=== PATIENT | female | born 1990 | race Caucasian/White ===

== ENCOUNTER → 2017-11-18 | Outpatient (CLI) | payer OTHER ==
[2017-11-18 12:08] LABS: BASO % 0.6 % (0.0-1.0); EOS # 0.1 10^3/uL (0.0-0.50); EOS % 1.9 % (0.0-3.0); HEMATOCRIT 42.3 % (36.0-47.0); HEMOGLOBIN 14.2 g/dl (12.0-15.5); IMMATURE GRANULOCYTE % 0.1 % (0-3.0); LYMPH # 2.3 10^3/uL (1.5-6.5); LYMPH % 33.9 % (24.0-44.0); MEAN CORPUSCULAR HEMOGLOBIN 30.6 pg (27.0-33.0); MEAN CORPUSCULAR HGB CONC 33.6 g/dl (32.0-36.5); MEAN CORPUSCULAR VOLUME 91.2 fl (80.0-96.0); MONO # 0.6 10^3/uL (0.0-0.8); MONO % 8.1 % (0.0-5.0); NEUTROPHILS # 3.8 10^3/uL (1.8-7.7); NEUTROPHILS % 55.4 % (36.0-66.0); PLATELET COUNT, AUTOMATED 312 10^3/uL (150-450); RED BLOOD COUNT 4.64 10^6/uL (4.00-5.40); WHITE BLOOD COUNT 6.8 10^3/uL (4.0-10.0)
[2017-11-18 12:37] LABS: ERYTHROCYTE SEDIMENTATION RATE 5 mm/hr (0-20)
[2017-11-19 14:25] LABS: ANTINUCLEAR ANTIBODIES DIRECT Negative (Negative); SJOGREN'S ANTI SS-A <0.2 AI (0.0-0.9); SJOGREN'S ANTI SS-B <0.2 AI (0.0-0.9)
== END ==
LOC: M WUC 09:19
DX: L71.8 Other rosacea (principal)

== ENCOUNTER → 2018-12-30 | Outpatient (REF) | payer OTHER | LOC: M LAB REF 16:22 | PROVIDERS: ATTEND Physician Assistant | DX: J02.9 Acute pharyngitis, unspecified (principal) ==

== ENCOUNTER → 2019-01-11 | Outpatient (REF) | payer OTHER | LOC: M SFHCWAGY 10:58 | PROVIDERS: ATTEND Nurse Practitioner Women's Health | DX: Z12.4 Encounter for screening for malignant neoplasm of cervix (principal) ==

== ENCOUNTER → 2020-01-14 | Outpatient (CLI) | payer OTHER ==
[2020-01-14 10:23] LABS: ESTRADIOL 137.7 PG/ML; PROGESTERONE 28.56 NG/ML
== END ==
LOC: M WUC 08:09
PROVIDERS: ATTEND Obstetrics & Gynecology Reproductive Endocrinology
DX: E28.9 Ovarian dysfunction, unspecified (principal)

== ENCOUNTER → 2020-01-21 | Outpatient (CLI) | payer OTHER ==
[2020-01-21 11:40] LABS: PROGESTERONE 21.13 NG/ML
== END ==
LOC: M WUC 08:01
PROVIDERS: ATTEND Obstetrics & Gynecology Reproductive Endocrinology
DX: Z32.00 Encounter for pregnancy test, result unknown (principal)

== ENCOUNTER → 2020-01-24 | Outpatient (CLI) | payer OTHER ==
[2020-01-24 11:35] LABS: THYROID STIMULATING HORMONE 0.526 uIU/ML (0.358-3.740)
[2020-01-24 11:44] LABS: PROGESTERONE 31.56 NG/ML
[2020-01-24 11:45] LABS: ESTRADIOL 195.5 PG/ML
== END ==
LOC: M WUC 08:10
PROVIDERS: ATTEND Obstetrics & Gynecology Reproductive Endocrinology
DX: Z32.01 Encounter for pregnancy test, result positive (principal)

== ENCOUNTER → 2020-01-31 | Outpatient (CLI) | payer OTHER ==
--- NOTE | 2020-01-31 07:48 | REP ---
INDICATION: DATING,VIABILITY. COMPARISON: None. TECHNIQUE: Transvaginal scanning. First trimester study. FINDINGS: Transvaginal scanning demonstrates a intrauterine gestational sac containing a 4.5 mm yolk sac but no identifiable embryonic pole. By mean sac size diameter of 1.8 cm, gestational age estimate would be 6 weeks 1 day. Uterine dimensions are 6.5 x 3.8 x 4.8 cm. Normal ovaries are seen. Right ovary measures 3.2 x 1.9 x 1.9 cm. Left ovarian dimensions are 2.7 x 1.8 x 1.6 cm. Doppler flow is present in both ovaries. No free fluid. No adnexal mass lesion seen. IMPRESSION: There is an intrauterine gestation with a yolk sac but no identifiable embryonic pole. viability cannot be confirmed. Six weeks 1 day gestational age estimate based on mean sac size diameter. Clinical and, possibly sonographic follow-up is advised. <Electronically signed by Jarett Lucero > 01/31/20 [id number]
== END ==
LOC: M WHC 06:22
PROVIDERS: ATTEND Obstetrics & Gynecology Reproductive Endocrinology
DX: O09.00 Supervision of pregnancy with history of infertility, unspecified trimester (principal)

== ENCOUNTER → 2020-01-31 | Outpatient (CLI) | payer OTHER ==
[2020-01-31 11:03] LABS: PROGESTERONE 18.28 NG/ML
== END ==
LOC: M WUC 08:14
PROVIDERS: ATTEND Obstetrics & Gynecology Reproductive Endocrinology
DX: O09.00 Supervision of pregnancy with history of infertility, unspecified trimester (principal)

== ENCOUNTER → 2020-02-07 | Outpatient (CLI) | payer OTHER ==
[2020-02-07 11:46] LABS: ESTRADIOL 263.8 PG/ML; PROGESTERONE 26.31 NG/ML
== END ==
LOC: M WUC 08:11
PROVIDERS: ATTEND Obstetrics & Gynecology Reproductive Endocrinology
DX: O09.00 Supervision of pregnancy with history of infertility, unspecified trimester (principal)

== ENCOUNTER → 2020-02-07 | Outpatient (CLI) | payer OTHER ==
--- NOTE | 2020-02-07 08:11 | REP ---
INDICATION: O09.00 WITH HX OF INFERTILITY,DATING . COMPARISON: 01/31/2020 TECHNIQUE: Endovaginal probe OB ultrasound FINDINGS: Uterus is anteverted. There is a gestational sac in the fundus with a good decidual reaction. Within the sac is a pole, the crown-rump length of 6 mm corresponds to 6 weeks 3 days. There is an unfused amnion identified on some images. A yolk sac is visualized. The heart activity is noted at 121 BPM. Cervix is 3.1 cm long and closed. No subchorionic bleed is identified. No adnexal mass adjacent or free fluid. Subcentimeter follicles are visible in both sides. No fluid in the cul-de-sac. IMPRESSION: 1. Single intrauterine gestation at 6 weeks 3 days by crown-rump length giving EDC 09/29/2020. By LMP, EDC 09/28/2020. 2. heart activity at 121 BPM. No subchorionic bleed. Close 3.1 cm long cervix. No adnexal mass or free fluid. <Electronically signed by Aurelio Cerda > 02/07/20 [id number]
== END ==
LOC: M WHC 06:58
PROVIDERS: ATTEND Obstetrics & Gynecology Reproductive Endocrinology
DX: O09.00 Supervision of pregnancy with history of infertility, unspecified trimester (principal)

== ENCOUNTER → 2020-03-08 | Outpatient (REF) | payer OTHER ==
[2020-03-08 17:31] LABS: HEMATOCRIT 41.6 % (36.0-47.0); HEMOGLOBIN 13.6 g/dl (12.0-15.5); MEAN CORPUSCULAR HEMOGLOBIN 30.1 pg (27.0-33.0); MEAN CORPUSCULAR HGB CONC 32.7 g/dl (32.0-36.5); PLATELET COUNT, AUTOMATED 296 10^3/uL (150-450); RED BLOOD COUNT 4.52 10^6/uL (4.00-5.40); WHITE BLOOD COUNT 8.8 10^3/uL (4.0-10.0)
[2020-03-08 18:01] LABS: FREE T4 0.98 NG/DL (0.76-1.46); THYROID STIMULATING HORMONE 0.339 uIU/ML (0.358-3.740)
[2020-03-08 18:43] LABS: HEPATITIS C VIRUS ABY INDEX < 0.0 INDEX (<0.8); HIV 1&2 SCREEN CENTAUR NEGATIVE (NEGATIVE)
== END ==
LOC: M PLALAB 13:53
PROVIDERS: ATTEND Advanced Practice Midwife
DX: Z3A.10 10 weeks gestation of pregnancy (principal)

== ENCOUNTER → 2020-04-05 | Outpatient (CLI) | payer OTHER | LOC: M WHC 13:20 | PROVIDERS: ATTEND Obstetrics & Gynecology | DX: Z34.92 Encounter for supervision of normal pregnancy, unspecified, second trimester (principal); Z3A.14 14 weeks gestation of pregnancy; Z53.9 Procedure and treatment not carried out, unspecified reason ==

== ENCOUNTER → 2020-05-03 | Outpatient (CLI) | payer OTHER ==
--- NOTE | 2020-05-03 14:22 | REP ---
INDICATION: ANATOMY COMPARISON: 02/07/2020 TECHNIQUE: Transabdominal obstetrical ultrasound with color Doppler evaluation. FINDINGS: Examination demonstrates a single live intrauterine in breech presentation. motion is identified by technologist. Placenta is noted anterior and grade 1 without evidence for placenta previa or abruption. Amniotic fluid volume is normal. Cervix measures 3.5 cm in length and appears closed.. Gestational age by LMP 18 weeks 6 days with ANN 09/28/2020. Gestational age by current measurements 19 weeks 1 day with ANN 09/26/2020. FHR equals 152 beats per minute. BPD: 4.3 cm 19 weeks 0 days HC: 16.2 cm 19 weeks 0 days AC: 13.2 cm 18 weeks 5 days FL: 3.0 cm 19 weeks 2 days HL: 3.0 cm 20 weeks 2 days HC/AC: 1.22 Estimated weight 269 grams (54thpercentile). Anatomical assessment demonstrates normal structures including cranium, choroid plexus, cavum, cerebellum/posterior fossa, facial features, lungs, diaphragm, stomach, cord insertion/three-vessel cord, kidneys/bladder, spine, and extremities. Limited evaluation of the heart/ventricular outflow tracts due to positioning. IMPRESSION: Single live intrauterine in breech presentation demonstrating appropriate interval growth. Anatomical limitations as noted above may warrant re-evaluation and follow-up. <Electronically signed by James Kamara > 05/03/20 [id number]
== END ==
LOC: M WHC 12:34
PROVIDERS: ATTEND Obstetrics & Gynecology
DX: Z36.9 Encounter for antenatal screening, unspecified (principal); Z3A.19 19 weeks gestation of pregnancy

== ENCOUNTER → 2020-05-17 | Outpatient (CLI) | payer OTHER ==
--- NOTE | 2020-05-17 14:47 | REP ---
INDICATION: F/U ANATOMY. COMPARISON: Comparison study May 03, 2020.. TECHNIQUE: Transabdominal obstetric sonography. FINDINGS: Scanning through the gravid uterus demonstrates a viable single intrauterine gestation in cephalic lie. motion is observed and heart rate is recorded at 156 beats per minute. A anterior placenta is seen, grade 1, without evidence of placenta previa. Closed cervical length is measured at 4.2 cm transabdominally. No extrauterine abnormality is observed. Amniotic fluid is subjectively normal. Complete anatomic survey was not performed with this exam. Four-chamber heart and bilateral outflow tracks were observed and felt to be unremarkable today.. Biometry chart: And BPD 5.0 cm, 21 weeks 1 day A head circumference 19.2 cm, 21 weeks 3 days Abdominal circumference 16.1 cm, 21 weeks 2 days Femur length 3.7 cm, 21 weeks 4 days Humeral length 3.5 cm, 21 weeks 6 days HC AC ratio normal 1.19 Cephalic index normal 0.71 Estimated weight 422 g, 0 lb 14 oz, greater than 97th percentile for 20 weeks 2 days. IMPRESSION: Viable single intrauterine gestation at 21 weeks 3 days by today's composite sonographic criteria. ANN by today's sonography September 24, 2020. No complication identified. Expected gestational age estimate based on prior sonography is 20 weeks 2 days. ANN by prior sonography 02 October 2020. <Electronically signed by Jarett Lucero > 05/17/20 [id number]
== END ==
LOC: M WHC 09:40
PROVIDERS: ATTEND Specialist
DX: Z34.02 Encounter for supervision of normal first pregnancy, second trimester (principal); Z36.89 Encounter for other specified antenatal screening; Z3A.21 21 weeks gestation of pregnancy

== ENCOUNTER → 2020-07-05 | Outpatient (REF) | payer OTHER ==
[2020-07-05 15:37] LABS: HEMATOCRIT 40.5 % (36.0-47.0); HEMOGLOBIN 13.2 g/dl (12.0-15.5); MEAN CORPUSCULAR HEMOGLOBIN 30.8 pg (27.0-33.0); MEAN CORPUSCULAR HGB CONC 32.6 g/dl (32.0-36.5); MEAN CORPUSCULAR VOLUME 94.6 fl (80.0-96.0); PLATELET COUNT, AUTOMATED 247 10^3/uL (150-450); RED BLOOD COUNT 4.28 10^6/uL (4.00-5.40); WHITE BLOOD COUNT 12.3 10^3/uL (4.0-10.0)
== END ==
LOC: M PLALAB 13:35
PROVIDERS: ATTEND Advanced Practice Midwife
DX: O09.812 Supervision of pregnancy resulting from assisted reproductive technology, second trimester (principal)

== ENCOUNTER → 2020-07-19 | Outpatient (CLI) | payer OTHER | LOC: M LAB 08:25 | PROVIDERS: ATTEND Advanced Practice Midwife | DX: O99.810 Abnormal glucose complicating pregnancy (principal); Z3A.00 Weeks of gestation of pregnancy not specified | CPT/HCPCS: 36415; 82951; 82952; 86850; 86901; J2790 ==

== ENCOUNTER → 2020-08-30 | Outpatient (REF) | payer OTHER | LOC: M SFHCWAGY 10:22 | PROVIDERS: ATTEND Advanced Practice Midwife | DX: Z36.89 Encounter for other specified antenatal screening (principal); Z3A.35 35 weeks gestation of pregnancy ==

== ENCOUNTER → 2020-09-18 | Outpatient (CLI) | payer OTHER ==
--- NOTE | 2020-09-18 19:09 | REP ---
INDICATION: UTERINE SIZE/DATE DISCREPANCY, GROWTH. COMPARISON: Comparison study is from May 17, 2020.. TECHNIQUE: Transabdominal obstetric sonography. FINDINGS: Scanning through the gravid uterus demonstrates a viable single intrauterine gestation in cephalic lie. motion is observed and heart rate is recorded at 150 beats per minute. A anterior placenta is seen, grade 2, without evidence of placenta previa. Cervix could not be seen due to head position. No extrauterine abnormality is observed. Amniotic fluid is subjectively normal. anatomic survey is not performed with this exam.. Biometry chart: BPD 9.3 cm, 37 weeks 4 days Head circumference 33.4 cm, 38 weeks 1 day Abdominal circumference 37.9 cm, 41 weeks 6 days Femur length 7.7 cm, 39 weeks 3 days Humeral length 6.6 cm, 38 weeks 2 days HC AC ratio 0.8 (0.9021.09) Cephalic index normal 0.78 Estimated weight 4045 g, 8 lb 14 oz, greater than 97th percentile for 38 weeks 4 days SD ratio in the umbilical cord artery by Doppler normal 2.03 CARMINE normal 10.7 cm IMPRESSION: Viable single intrauterine gestation at 39 weeks 0 days by today's composite sonographic criteria. ANN by today's sonography September 25, 2020. No complication identified. Expected gestational age estimate based on prior ANN of 28 September 2020 is 38 weeks 4 days. Estimated weight is at greater than 97th percentile. <Electronically signed by Jarett Lucero > 09/18/20 [id number]
== END ==
LOC: M RAD 17:01
PROVIDERS: ATTEND Advanced Practice Midwife
DX: O26.843 Uterine size-date discrepancy, third trimester (principal); Z3A.39 39 weeks gestation of pregnancy

== ENCOUNTER 2020-09-23 10:54 | Inpatient (IN) | payer OTHER ==
[~2020-09-23] VITALS: Ht 167.6 cm; Wt 105.9 kg
[2020-09-23] VITALS (44 sets, daily range): BP systolic 85–148; BP diastolic 46–86
[2020-09-23] MEDS ORDERED: PRENTAB9 PO (11:19)
[2020-09-23] MEDS ORDERED: SUCR1TAB56 PO (11:19)
[2020-09-23] MEDS ORDERED: CETI-24 PO (11:19)
[2020-09-23] MEDS ORDERED: OMEP-218 PO (11:19)
[2020-09-23] MEDS ORDERED: LACTATED RINGER'S 1000 ML IV STA (11:35)
[2020-09-23] MEDS ORDERED: OXYTOCIN DRIP 30 UNITS in IV 1 EA IV SCH (11:55)
--- NOTE | 2020-09-23 12:08 | HPEPDOC ---
Obstetrical History & Physical General Date of Admission Sep 23, 2020 at 10:54 History of Present Illness 29 yo at 39 2/7 weeks gestation by LMP c/w 6 weeks ultrasound (EDC=09/28/2020 ) presents for labor induction. She does have contractions every 2-3 minutes which started this morning. slight bleeding, good movement. 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 Past Medical History Surgical History: Denies/None, Tooth extraction Social History Marital Status: Family situation: Spouse/partner home Psychosocial History: No pertinent psych hx * Smoker: non-smoker Alcohol: Denies Allergies Coded Allergies: sulfamethoxazole (Verified Allergy, Unknown, "TYRONE" SYNDROME, 09/23/20) trimethoprim (Verified Allergy, Unknown, "TYRONE" SYNDROME, 09/23/20) Medications Scheduled Cetirizine HCl (Cetirizine HCl) 10 Mg Tablet, 1 TAB PO DAILY for allergy symptoms Omeprazole (Omeprazole) 20 Mg Capsule.dr, 1 CAP PO DAILY No.137/Iron/Folic Acd ( Vitamin Tablet) 1 Each Tablet, 1 TAB PO DAILY Sucralfate (Sucralfate) 1 Gm Tablet, 1 GRAM PO BID Physical Examination Physical Examination GENERAL: Alert and oriented times three. BREAST: . ABDOMEN: Gravid and non-tender to touch. FETUS: Is vertex (VTX) by sterile vaginal examination (SVE), fetus is vertex (VTX) by Rolo. HEART RATE: Regular rate and rhythm. LUNGS: Clear to auscultation (CTA). EXTREMITIES: No edema. No clonus. Deep tendon reflexes (DTRs) + . Laboratory Data 24H LABS Laboratory Tests 2 09/23/20 11:00: Serology Scanned Report Hepatitis B Testing Pertinent Laboratoy Data Blood Type: A- Group B Streptococcus: Negative Anatomy Ultrasound Ultrasound Date: Sep 18, 2020 Estimated Weight (grams): 4054 Steroid Therapy Steroid Therapy: No Vaginal Examination Dilation: 1cm Effacement: 90% Station: -2 Cervical Consistency: Soft Cervical Position: Posterior Presentation: Cephalic presentation Assessment Variability: Moderate Accelerations: Positive Decelerations: None Tocometer Contractions: Yes Frequency: regular, every 1-3 min. Assessment/Plan Assessment Pt is a 29-year-old (G)1 para (P)0 at 39+2 weeks by LMP c/w 6-week ultrasound (EDC=09/28/2020) presents to Labor and Delivery for induction Plan Admit and orient. Literature Teacher and consent. Diet: reg Discussed large EFW, and risk of should dystocia Discussed Pitocin use for induction Pt appears to be in early labor upon admission EDUARDA POLLARD MD Sep 23, 2020 12:08
[2020-09-23 12:23] LABS: HEMATOCRIT 43.3 % (36.0-47.0); HEMOGLOBIN 14.3 g/dl (12.0-15.5); MEAN CORPUSCULAR HEMOGLOBIN 30.2 pg (27.0-33.0); MEAN CORPUSCULAR VOLUME 91.4 fl (80.0-96.0); PLATELET COUNT, AUTOMATED 266 10^3/uL (150-450); RED BLOOD COUNT 4.74 10^6/uL (4.00-5.40); WHITE BLOOD COUNT 14.3 10^3/uL (4.0-10.0)
[2020-09-23] MEDS ORDERED: PROMETHAZINE INJ 25 MG/ML VIAL (J2550) IV ONE (14:40)
[2020-09-23] MEDS ORDERED: BUTORPHANOL 2 MG/ML INJ (J0595) IV ONE (14:40)
[2020-09-23] MEDS: LR 1,000 ML IV SCH ×2 (16:11→18:38)
[2020-09-23] MEDS ORDERED: FENTANYL 2MCG/ML ROPIVACAINE 0.2% IN 0.9% NACL 100ML IVBAG As Ordered ONE (16:46)
[2020-09-23] MEDS ORDERED: EPIDURAL/PCA KEYS XX PRN (17:10)
[2020-09-23] MEDS ORDERED: NALOXONE INJ 0.4MG/1ML VIAL (J2310 PER 1MG) IV PRN (17:10)
[2020-09-23] MEDS ORDERED: diphenhydrAMINE 50MG/ML VIAL (J1200) IV PRN (17:10)
[2020-09-23] MEDS ORDERED: REFRIGERATOR IV KEYS XX PRN (17:10)
[2020-09-23] MEDS ORDERED: EPIDURAL COMMENT XX SCH (17:10)
[2020-09-23] MEDS ORDERED: ONDANSETRON 4MG/2ML VIAL IV PRN (17:10)
[2020-09-23] MEDS ORDERED: LACTATED RINGER'S 1000 ML IV PRN (17:10)
[2020-09-23] MEDS: FENTANYL/ROPIVACAINE/NACL BAG 100 ML EPIDURAL SCH (17:30)
[2020-09-23] MEDS: ePHEDrine SULFATE 25 MG/5 ML(5MG/ML) SYRINGE IV PRN ×3 (17:53→19:50)
--- NOTE | 2020-09-23 20:40 | IPNPDOC ---
Obstetrical Progress Note Date of Service Sep 23, 2020 Subjective Comfortable with epidural Objective Vital Signs Date Time Temp Pulse Resp B/P (MAP) Pulse Ox O2 Delivery O2 Flow Rate FiO2 09/23/20 18:04 76 101/50 (67) 09/23/20 18:00 98.0 16 Assessment Variability: Moderate Accelerations: Positive Decelerations: None Heart Rate Tracing: Category I Tocometer Contractions: Yes Frequency: regular Duration: less than 60 seconds Strength: palpated as moderate Sterile Vaginal Examination Dilation: 4 cm Effacement (%): 100% Station: -1 Cervical Consistency: Soft Assessment and Plan Status: Reassuring Additional Comments 29 yo G1 at 39 2/7 weeks, induction AROM performed for clear fluid at 2029 Pitocin at 4 mu/min EDUARDA POLLARD MD Sep 23, 2020 20:40
[2020-09-24] VITALS (25 sets, daily range): BP systolic 100–153; BP diastolic 53–69
[2020-09-24] MEDS ORDERED: FENTANYL 2MCG/ML ROPIVACAINE 0.2% IN 0.9% NACL 100ML IVBAG As Ordered ONE (02:34)
[2020-09-24] MEDS: FENTANYL/ROPIVACAINE/NACL BAG 100 ML EPIDURAL SCH (02:39)
[2020-09-24] MEDS ORDERED: BICITRA 30ML SOLN UDC PO ONE (03:10)
[2020-09-24] MEDS ORDERED: ceFAZolin SOD 2 GM in IV 1 EA IV ONE (03:10)
[2020-09-24] MEDS ORDERED: AZITHROMYCIN INJ 500 MG, VIAL MATE ADAPTER 1 EACH in NS 250 ML IV ONE (03:10)
[2020-09-24] MEDS ORDERED: ceFAZolin 2 GM/D5W 50 ML IV BAG (J0690 PER 500MG) As Ordered ONE (03:14)
[2020-09-24] MEDS ORDERED: BICITRA 30ML SOLN UDC As Ordered ONE (03:15)
[2020-09-24] MEDS ORDERED: AZITHROMYCIN INJ 500MG VIAL (J0456 PER 500MG) As Ordered ONE (03:16)
[2020-09-24] MEDS ORDERED: LIDOCAINE 2% W/EPINEPHRINE 20ML VIAL **PRES FREE As Ordered ONE (03:30)
[2020-09-24] MEDS ORDERED: ONDANSETRON 4MG/2ML VIAL As Ordered ONE (03:30)
[2020-09-24] MEDS ORDERED: MORPHINE PRES-FREE INJ 10 MG/10 ML VIAL (J2274) As Ordered ONE (03:30)
[2020-09-24] MEDS ORDERED: METOCLOPRAMIDE INJ 10MG/2ML VIAL (J2765 PER 1) IV PRN ×2 (03:42→03:45)
[2020-09-24] MEDS ORDERED: NALBUPHINE HCL 10 MG/ML AMP (J2300) IV PRN (03:42)
[2020-09-24] MEDS ORDERED: ONDANSETRON 4MG/2ML VIAL IV PRN ×3 (03:42→04:10)
[2020-09-24] MEDS ORDERED: diphenhydrAMINE 50MG/ML VIAL (J1200) IV PRN (03:42)
[2020-09-24] MEDS ORDERED: NALOXONE INJ 0.4MG/1ML VIAL (J2310 PER 1MG) IV PRN ×2 (03:42)
[2020-09-24] MEDS ORDERED: fentaNYL 100 MCG/2 ML INJECTION (J3010) IV PRN (03:45)
[2020-09-24] MEDS ORDERED: LR 1,000 ML IV SCH (03:45)
[2020-09-24] MEDS ORDERED: KETOROLAC 30 MG/ML 1ML VIAL IV PRN (03:45)
[2020-09-24] MEDS ORDERED: PERCOCET 5MG/325MG TAB PO PRN ×2 (03:45→04:10)
[2020-09-24 03:48] LABS: CORD GAS ABE V -0.4; CORD GAS HCO3 V 23.2 MEQ/L; CORD GAS O2 SAT V 48.6 %; CORD GAS PCO2 V 34.8 mmHg; CORD GAS PH V 7.441 UNITS; CORD GAS PO2 V 18.1 mmHg; CORD GAS TCO2 V 24.2 MEQ/L
[2020-09-24 03:50] LABS: CORD GAS ABE A -4.6; CORD GAS HCO3 A 20.7 MEQ/L; CORD GAS O2 SAT A 95.5 %; CORD GAS PCO2 A 39.2 mmHg; CORD GAS PH A 7.34 UNITS; CORD GAS PO2 A 60.6 mmHg; CORD GAS SBC A 20.6 MEQ/L; CORD GAS TCO2 A 21.9 MEQ/L
[2020-09-24] MEDS ORDERED: METOCLOPRAMIDE INJ 10MG/2ML VIAL (J2765 PER 1) As Ordered ONE (03:52)
[2020-09-24] MEDS ORDERED: KETOROLAC 60MG 2ML VIAL As Ordered ONE (03:55)
[2020-09-24] MEDS ORDERED: SIMETHICONE 80MG CHEW TAB PO PRN (04:10)
[2020-09-24] MEDS ORDERED: MEASLES,MUMPS,RUBELLA VACCINE INJ (MMR-II) (90707) SC SCH (04:10)
[2020-09-24] MEDS ORDERED: OXYTOCIN DRIP 30 UNITS in IV 1 EA IV SCH (04:10)
[2020-09-24] MEDS ORDERED: RHOGAM 300 MCG (1500 IU) INJ (J2790) IM SCH (04:10)
--- NOTE | 2020-09-24 04:16 | ROOPDOC ---
[facility] Report Of Operation Report of Operation DATE OF PROCEDURE: 09/24/20 Report of operation Preoperative diagnosis:39 2/7 weeks, arrest of descent Postoperative diagnosis: same Procedure: Primary low transverse section. Surgeon: Eduarda Pollard M.D. Asst.: Gray Ash MD EBL: 600 ml. Urine output: 100 mL's. Findings: 8 lbs. 14 oz. male , 's 7 and 8 g normal uterus, fallopian tubes, ovaries. Operative summary: Patient taken to the operating room where epidural anesthesia was in place and found to be adequate. She was prepped and draped in a sterile fashion in the supine position. A Moffett catheter was placed. A Pfannenstiel skin incision was made with a scalpel. Fascia was incised and extended bilaterally. The peritoneal cavity was entered. A Mobius retractor was placed. A bladder flap was created. A curvilinear incision was made in lower uterine segment until Clear fluid was noted. The incision was extended manually. The infant was delivered from the vertex position without difficulty. Cord was doubly clamped and cut. The was handed to the awaiting nurses. The placenta was expressed. Uterus was closed with O-Vicryl in a running locked fashion. A second imbricating layer of Vicryl was placed. Peritoneum was closed with 2-0 Vicryl a running fashion. Fascia was closed with 0 Vicryl in running fashion. Skin was closed 4-0 Monocryl subcuticular sutures. Sponge, instrument and needle counts were correct. Gray Ash MD, assisted with all aspects of the procedure. He helped close each layer of the incision and deliver the fetus. EDUARDA POLLARD MD Sep 24, 2020 04:16
[2020-09-24] MEDS ORDERED: OXYTOCIN 30 UNITS IN 0.9% NaCl 500ML IV BAG (J2590) As Ordered ONE (04:24)
[2020-09-24] MEDS: LR 1,000 ML IV SCH ×2 (04:28→11:18)
[2020-09-24] MEDS: PRENATAL VITAMINS CHEWABLE TABLET PO SCH (09:17)
[2020-09-24] MEDS: KETOROLAC 30 MG/ML 1ML VIAL IV SCH ×3 (09:17→21:37)
[2020-09-25 02:00] VITALS: BP 115/69
[2020-09-25] MEDS: IBUPROFEN 800 MG TAB PO SCH ×3 (05:02→22:01)
[2020-09-25] MEDS: PERCOCET 5MG/325MG TAB PO PRN ×3 (05:48→18:47)
[2020-09-25 06:00] VITALS: BP 129/60
--- NOTE | 2020-09-25 06:56 | IPNPDOC ---
Progress Note Date of Service: Sep 25, 2020 Progress Note SUBJECT: 29-year-old postop day 1 status post . Pain is adequately managed. Good bladder function. Tolerating regular diet OBJECTIVE: VITAL SIGNS: Within normal limits, afebrile. Alert and oriented times three. Breath sounds clear to auscultation. Heart rate: Regular rate and rhythm, no murmurs, rubs or gallops. Abdomen: Fundus firm at U-2. Soft, NTTP. [Minimal] lochia. ASSESSMENT: [29-year-old postop day #1 status post section. Patient doing well. PLAN: 1. Continue routine postop care. 2. Pain management per protocol 3. Ambulate VS, I&O, 24H, Fishbone Vital Signs/I&O Vital Signs Date Time Temp Pulse Resp B/P (MAP) Pulse Ox O2 Delivery O2 Flow Rate FiO2 09/25/20 05:48 16 09/25/20 02:00 97.7 83 115/69 (84) 97 Room Air I&O- Last 24 Hours up to 6 AM 09/25/20 06:00 Intake Total 2380 ml Output Total 1800 ml Balance 580 ml EDUARDA POLLARD MD Sep 25, 2020 06:56
[2020-09-25 07:21] LABS: HEMATOCRIT 34.1 % (36.0-47.0); MEAN CORPUSCULAR HEMOGLOBIN 30.1 pg (27.0-33.0); MEAN CORPUSCULAR HGB CONC 32.3 g/dl (32.0-36.5); MEAN CORPUSCULAR VOLUME 93.2 fl (80.0-96.0); PLATELET COUNT, AUTOMATED 227 10^3/uL (150-450); RED BLOOD COUNT 3.66 10^6/uL (4.00-5.40); WHITE BLOOD COUNT 20.8 10^3/uL (4.0-10.0)
[2020-09-25 10:00] VITALS: BP 124/57
[2020-09-25] MEDS: PRENATAL VITAMINS CHEWABLE TABLET PO SCH (10:08)
[2020-09-25] MEDS: DOCUSATE SODIUM 100MG CAPSULE PO PRN (13:23)
[2020-09-25 14:00] VITALS: BP 124/67
[2020-09-25 18:00] VITALS: BP 128/76
[2020-09-25 22:00] VITALS: BP 128/70
[2020-09-26 02:00] VITALS: BP 132/60
[2020-09-26 06:00] VITALS: BP 119/72
[2020-09-26] MEDS: IBUPROFEN 800 MG TAB PO SCH ×3 (06:12→22:11)
--- NOTE | 2020-09-26 08:46 | IPNPDOC ---
Progress Note Date of Service: Sep 26, 2020 Day#: 2 Progress Note SUBJECT: Laurence is a 29-year-old female who is a who had a primary cesa rean section due to arrest of descent. She reports she has ambulated, voided without any issues and has been able to eat a regular diet. She does report she desires to stay due to discomfort at her incision. OBJECTIVE: VITAL SIGNS: Within normal limits, afebrile. Alert and oriented times three. Breath sounds clear to auscultation. Abdomen: Fundus firm. Dressing intact. Minimal lochia. ASSESSMENT: Day 1 postoperative. PLAN: 1. Patient desires to stay for 1 more day due to discomfort. 2. Patient encouraged to ambulate today and shower today. 3. Continue supportive nursing care. 4. Anticipate discharge to home tomorrow. VS, I&O, 24H, Fishbone Vital Signs/I&O Vital Signs Date Time Temp Pulse Resp B/P (MAP) Pulse Ox O2 Delivery O2 Flow Rate FiO2 09/26/20 06:00 97.5 76 18 119/72 (88) 99 Room Air MIKE RALPH CNM Sep 26, 2020 08:46
[2020-09-26] MEDS: PRENATAL VITAMINS CHEWABLE TABLET PO SCH (08:54)
[2020-09-26] MEDS ORDERED: DOK1CAP7 PO (14:33)
[2020-09-26] MEDS ORDERED: PERCOCET PO (14:33)
[2020-09-26] MEDS ORDERED: IBUP80TA PO (14:33)
[2020-09-26 17:58] VITALS: BP 129/74
[2020-09-26 22:00] VITALS: BP 142/78
[2020-09-26] MEDS: DOCUSATE SODIUM 100MG CAPSULE PO PRN (22:10)
[2020-09-27 06:00] VITALS: BP 125/74
[2020-09-27] MEDS: IBUPROFEN 800 MG TAB PO SCH (06:00)
--- NOTE | 2020-09-27 09:05 | IPNPDOC ---
Progress Note Date of Service: Sep 27, 2020 Day#: 3 Progress Note PPD/POD 3 SUBJECT: Laurence is a 29yo [id number] s/p uncomplicated PLTCS for arrest of descent on 09/24, doing well /post-op day #3. She has been ambulating, voiding spontaneously without issue and tolerating regular diet. Breast feeding without issue. Reports lochia is like a normal period. Pain well controlled. No f/c/n/v/CP/SOB. OBJECTIVE: VITAL SIGNS: Within normal limits, afebrile. Alert and oriented times three. Abdomen: Fundus firm at U-2. Soft, appropriately tender to palpation. Optifoam dressing overlies pfannenstiel incision and is clean/dry/intact Extremities: no pain with palpation of calves Labs: pre-op H/H: 14.3/43.3 post-op H/H: 11/34.1 ASSESSMENT: Laurence is a 29yo [id number] s/p uncomplicated PLTCS for arrest of descent on 09/24, doing well /post-op day #3. Vitals within normal limits, afebrile, hemodynamically stable with no evidence of infection. PLAN: 1. Discharge to home 2. Percocet and Motrin for pain. Colace for bowel regimen 3. Encouraged breast feeding and ambulation. 4. Regular diet 5. Discussed return precautions 6. No heavy lifting and vaginal rest 6 weeks 7. Remove optifoam dressing in 1 week and keep clean and dry 8. Follow up in office with Dr. Quijano in 2 weeks for incision check Sue Martinez MD VS, I&O, 24H, Fishbone Vital Signs/I&O Vital Signs Date Time Temp Pulse Resp B/P (MAP) Pulse Ox O2 Delivery O2 Flow Rate FiO2 09/27/20 06:00 98.1 67 16 125/74 (91) 99 Room Air Sue Martinez MD Sep 27, 2020 09:05
--- NOTE | 2020-09-27 09:08 | DS.PDOC ---
Discharge Summary General Date of Admission Sep 23, 2020 at 10:54 Date of Discharge Sep 27, 2020 Discharge Summary PROCEDURES PERFORMED DURING STAY: primary low transverse section ADMITTING DIAGNOSES: 1. induction of labor at term DISCHARGE DIAGNOSES: 1. induction of labor at term 2. delivered via section for arrest of descent COMPLICATIONS/CHIEF COMPLAINT: IOL. HISTORY OF PRESENT ILLNESS/HOSPITAL COURSE: Laurence is a 29yo [id number] s/p uncomplicated PLTCS for arrest of descent on 09/24, doing well /post-op day #3. She had a benign /post- operative course. At time of discharge, vitals were within normal limits, she was afebrile, hemodynamically stable with no evidence of infection. DISCHARGE MEDICATIONS: Please see below. ALLERGIES: Please see below. PHYSICAL EXAMINATION ON DISCHARGE: VITAL SIGNS: Within normal limits, afebrile. Alert and oriented times three. Abdomen: Fundus firm at U-2. Soft, appropriately tender to palpation. Optifoam dressing overlies pfannenstiel incision and is clean/dry/intact Extremities: no pain with palpation of calves LABORATORY DATA: Please see below. pre-op H/H: 14.3/43.3 post-op H/H: 11/34.1 DISCHARGE PLAN/INSTRUCTIONS: 1. Discharge to home 2. Percocet and Motrin for pain. Colace for bowel regimen 3. Encouraged breast feeding and ambulation. 4. Regular diet 5. Discussed return precautions 6. No heavy lifting and vaginal rest 6 weeks 7. Remove optifoam dressing in 1 week and keep clean and dry 8. Follow up in office with Dr. Quijano in 2 weeks for incision check DISCHARGE CONDITION: Stable TIME SPENT ON DISCHARGE: Greater than 20 minutes. Vital Signs/I&Os Vital Signs Date Time Temp Pulse Resp B/P (MAP) Pulse Ox O2 Delivery O2 Flow Rate FiO2 09/27/20 06:00 98.1 67 16 125/74 (91) 99 Room Air Discharge Medications Scheduled Cetirizine HCl (Cetirizine HCl) 10 Mg Tablet, 1 TAB PO DAILY for allergy symptoms, (Reported) Ibuprofen (Ibuprofen) 800 Mg Tablet, 800 MG PO Q8H Omeprazole (Omeprazole) 20 Mg Capsule.dr, 1 CAP PO DAILY, (Reported) No.137/Iron/Folic Acd ( Vitamin Tablet) 1 Each Tablet, 1 TAB PO DAILY, (Reported) Sucralfate (Sucralfate) 1 Gm Tablet, 1 GRAM PO BID, (Reported) Scheduled PRN Docusate Sodium (Dok) 100 Mg Capsule, 100 MG PO BID PRN for CONSTIPATION Oxycodone/Acetaminophen (Oxycodone-Acetaminophen 5-325) 1 Each Tablet, 1 TAB PO Q4H PRN for MILD/MODERATE PAIN (PS 1-7) Allergies Coded Allergies: sulfamethoxazole (Verified Allergy, Unknown, "TYRONE" SYNDROME, 09/23/20) trimethoprim (Verified Allergy, Unknown, "TYRONE" SYNDROME, 09/23/20) Sue Martinez MD Sep 27, 2020 09:08
[2020-09-27] MEDS: PRENATAL VITAMINS CHEWABLE TABLET PO SCH (10:35)
== END 2020-09-27 11:05 | disposition home or self-care (01) | DRG 788 ==
LOC: M LDI 10:54 → M OBS 09-24 05:45
PROVIDERS: ADMIT Specialist; ATTEND Specialist
PROC: 10907ZC Drainage of Amniotic Fluid, Therapeutic from Products of Conception, Via Natural or Artificial Opening (ICD-10-PCS; 2020-09-23)
PROC: 3E033VJ Introduction of Other Hormone into Peripheral Vein, Percutaneous Approach (ICD-10-PCS; 2020-09-23)
PROC: 10D00Z1 Extraction of Products of Conception, Low, Open Approach (ICD-10-PCS; principal; 2020-09-24 03:34)
DX: O36.63X0 Maternal care for excessive fetal growth, third trimester, not applicable or unspecified (principal); Z3A.39 39 weeks gestation of pregnancy; O64.0XX0 Obstructed labor due to incomplete rotation of fetal head, not applicable or unspecified; Z37.0 Single live birth

== ENCOUNTER → 2021-02-07 | Outpatient (REF) | payer OTHER ==
[~2021-02-07] MED LIST: CETI-24 PO; DOK1CAP4 PO; IBUP80TA PO; OMEP-218 PO; PERCOCET PO; PRENTAB9 PO; SUCR1TAB56 PO
== END ==
LOC: M SFHCWAGY 16:40
PROVIDERS: ATTEND Nurse Practitioner Women's Health
DX: A60.04 Herpesviral vulvovaginitis (principal)

== ENCOUNTER → 2021-10-19 | Outpatient (CLI) | payer OTHER ==
[~2021-10-19] MED LIST changes: +OMEP-173 PO; -OMEP-218 PO
[2021-10-19 10:32] LABS: HEMATOCRIT 40.7 % (36.0-47.0); HEMOGLOBIN 13.3 g/dl (12.0-15.5); MEAN CORPUSCULAR HEMOGLOBIN 29.8 pg (27.0-33.0); MEAN CORPUSCULAR HGB CONC 32.7 g/dl (32.0-36.5); MEAN CORPUSCULAR VOLUME 91.3 fl (80.0-96.0); PLATELET COUNT, AUTOMATED 277 10^3/uL (150-450); RED BLOOD COUNT 4.46 10^6/uL (4.00-5.40); WHITE BLOOD COUNT 4.9 10^3/uL (4.0-10.0)
[2021-10-19 12:55] LABS: ALBUMIN 3.8 GM/DL (3.2-5.2); ALT/SGPT 20 U/L (12-78); BILIRUBIN,TOTAL 0.3 MG/DL (0.2-1.0); BLOOD UREA NITROGEN 15 MG/DL (7-18); CALCIUM LEVEL 8.9 MG/DL (8.5-10.1); CARBON DIOXIDE LEVEL 28 MEQ/L (21-32); CHLORIDE LEVEL 108 MEQ/L (98-107); CREATININE FOR GFR 0.71 MG/DL (0.55-1.30); GLOMERULAR FILTRATION RATE > 60.0 (>60); GLUCOSE, FASTING 85 MG/DL (70-100); HCG, SERUM QUANTITATIVE < 1.0 MIU/ML; POTASSIUM SERUM 4.4 MEQ/L (3.5-5.1); SODIUM LEVEL 141 MEQ/L (136-145); TESTOSTERONE 21 NG/DL (14-76); THYROID STIMULATING HORMONE 0.519 uIU/ML (0.358-3.740); TOTAL PROTEIN 6.7 GM/DL (6.4-8.2)
[2021-10-19 12:57] LABS: HEPATITIS B SURFACE ANTIGEN NEGATIVE (NEGATIVE)
[2021-10-19 13:24] LABS: HEPATITIS C VIRUS ABY INDEX < 0.0 INDEX (<0.8)
[2021-10-19 13:25] LABS: HIV 1&2 SCREEN CENTAUR NEGATIVE (NEGATIVE)
[2021-10-19 13:39] LABS: HEMOGLOBIN A1c 4.9 %
== END ==
LOC: M WUC 08:12
PROVIDERS: ATTEND Obstetrics & Gynecology Reproductive Endocrinology
DX: Z31.41 Encounter for fertility testing (principal)

== ENCOUNTER → 2021-11-14 | Outpatient (CLI) | payer OTHER ==
[2021-11-14 10:00] LABS: HCG, SERUM QUANTITATIVE < 1.0 MIU/ML; THYROID STIMULATING HORMONE 0.691 uIU/ML (0.358-3.740)
[2021-11-14 10:23] LABS: PROGESTERONE 0.21 NG/ML
[2021-11-14 10:24] LABS: ESTRADIOL 26.2 PG/ML; FOLLICLE STIMULATING HORMONE 7.6 mIU/mL
[2021-11-14 10:27] LABS: LUTEINIZING HORMONE 4.3 mIU/mL
== END ==
LOC: M RAD 08:20
PROVIDERS: ATTEND Obstetrics & Gynecology Reproductive Endocrinology
DX: Z31.83 Encounter for assisted reproductive fertility procedure cycle (principal)

== ENCOUNTER → 2021-11-16 | Outpatient (CLI) | payer OTHER | LOC: M WHC 09:34 | PROVIDERS: ATTEND Obstetrics & Gynecology Reproductive Endocrinology | DX: Z31.83 Encounter for assisted reproductive fertility procedure cycle (principal) ==

== ENCOUNTER → 2022-01-21 | Outpatient (CLI) | payer OTHER ==
[2022-01-21 11:39] LABS: HCG, SERUM QUANTITATIVE < 1.0 MIU/ML; THYROID STIMULATING HORMONE 0.694 uIU/ML (0.358-3.740)
[2022-01-21 13:00] LABS: ESTRADIOL 32.1 PG/ML; FOLLICLE STIMULATING HORMONE 8.7 mIU/mL; PROGESTERONE 0.22 NG/ML
== END ==
LOC: M PLALAB 08:12
PROVIDERS: ATTEND Obstetrics & Gynecology Reproductive Endocrinology
DX: Z31.83 Encounter for assisted reproductive fertility procedure cycle (principal)

== ENCOUNTER → 2022-01-21 | Outpatient (CLI) | payer OTHER | LOC: M WHC 07:31 | PROVIDERS: ATTEND Obstetrics & Gynecology Reproductive Endocrinology | DX: Z31.83 Encounter for assisted reproductive fertility procedure cycle (principal) ==

== ENCOUNTER → 2022-01-25 | Outpatient (CLI) | payer OTHER | LOC: M WHC 08:50 | PROVIDERS: ATTEND Obstetrics & Gynecology Reproductive Endocrinology | DX: Z31.83 Encounter for assisted reproductive fertility procedure cycle (principal); N85.4 Malposition of uterus ==

== ENCOUNTER → 2022-01-25 | Outpatient (CLI) | payer OTHER ==
[2022-01-25 11:59] LABS: ESTRADIOL 124.5 PG/ML; LUTEINIZING HORMONE 4.7 mIU/mL; PROGESTERONE 0.21 NG/ML
== END ==
LOC: M PLALAB 08:54
PROVIDERS: ATTEND Obstetrics & Gynecology Reproductive Endocrinology
DX: Z31.83 Encounter for assisted reproductive fertility procedure cycle (principal)

== ENCOUNTER → 2022-02-06 | Outpatient (CLI) | payer OTHER ==
[2022-02-06 12:07] LABS: ESTRADIOL 114.1 PG/ML; PROGESTERONE 34.75 NG/ML
== END ==
LOC: M PLALAB 07:25
PROVIDERS: ATTEND Obstetrics & Gynecology Reproductive Endocrinology
DX: Z31.41 Encounter for fertility testing (principal)

== ENCOUNTER → 2022-02-11 | Outpatient (CLI) | payer OTHER ==
[2022-02-11 10:34] LABS: HCG, SERUM QUANTITATIVE < 1.0 MIU/ML
[2022-02-11 11:13] LABS: PROGESTERONE 47.89 NG/ML
[2022-02-11 11:14] LABS: ESTRADIOL 114.2 PG/ML
== END ==
LOC: M PLALAB 07:23
PROVIDERS: ATTEND Obstetrics & Gynecology Reproductive Endocrinology
DX: Z31.41 Encounter for fertility testing (principal)

== ENCOUNTER → 2022-09-15 | Outpatient (REF) | payer OTHER | LOC: M WUC 17:27 | PROVIDERS: ATTEND Physician Assistant | DX: R30.0 Dysuria (principal) ==

== ENCOUNTER → 2022-10-24 | Outpatient (CLI) | payer OTHER ==
[2022-10-24 10:30] LABS: HCG, SERUM QUANTITATIVE < 2.6 MIU/ML (<4.2)
[2022-10-24 10:34] LABS: PROGESTERONE 28.14 NG/ML
== END ==
LOC: M WUC 08:30
PROVIDERS: ATTEND Obstetrics & Gynecology Reproductive Endocrinology
DX: Z32.00 Encounter for pregnancy test, result unknown (principal)

== ENCOUNTER → 2022-11-18 | Outpatient (CLI) | payer OTHER ==
[2022-11-18 10:10] LABS: HEMATOCRIT 41.7 % (36.0-47.0); HEMOGLOBIN 13.8 g/dl (12.0-15.5); MEAN CORPUSCULAR HEMOGLOBIN 30.7 pg (27.0-33.0); MEAN CORPUSCULAR HGB CONC 33.1 g/dl (32.0-36.5); MEAN CORPUSCULAR VOLUME 92.7 fl (80.0-96.0); PLATELET COUNT, AUTOMATED 241 10^3/uL (150-450); WHITE BLOOD COUNT 5.1 10^3/uL (4.0-10.0)
[2022-11-18 10:48] LABS: ALBUMIN 3.7 G/DL (3.2-5.2); ALKALINE PHOSPHATASE 53 U/L (46-116); ALT/SGPT 12 U/L (7.0-40); AST/SGOT < 8 U/L (<34); BILIRUBIN,TOTAL 0.4 MG/DL (0.3-1.2); BLOOD UREA NITROGEN 12 MG/DL (9-23); CALCIUM LEVEL 8.8 MG/DL (8.5-10.1); CARBON DIOXIDE LEVEL 27 MMOL/L (20-31); CHLORIDE LEVEL 106 MMOL/L (98-107); GLOMERULAR FILTRATION RATE > 60.0 (>60); GLUCOSE, FASTING 82 MG/DL (60-100); HCG, SERUM QUANTITATIVE < 2.6 MIU/ML (<4.2); POTASSIUM SERUM 4.3 MMOL/L (3.5-5.1); SODIUM LEVEL 138 MMOL/L (136-145); TOTAL PROTEIN 6.6 G/DL (5.7-8.2)
[2022-11-18 11:45] LABS: ATYPICAL LYMPH 3 % (0-5); EOSINOPHILS 5 % (0-3); LYMPHOCYTES 46 % (16-44); MONOCYTES 8 % (0-5); NEUTROPHILS 38 % (28-66)
[2022-11-18 11:46] LABS: PLATELET ESTIMATE NORMAL (NORMAL)
== END ==
LOC: M WUC 08:27
PROVIDERS: ATTEND Obstetrics & Gynecology Reproductive Endocrinology
DX: Z01.812 Encounter for preprocedural laboratory examination (principal)

== ENCOUNTER → 2023-07-16 | Outpatient (CLI) | payer OTHER ==
[2023-07-16 10:52] LABS: ESTRADIOL 125.4 PG/ML
[2023-07-16 10:54] LABS: PROGESTERONE 54.17 NG/ML
== END ==
LOC: M PLALAB 07:21
PROVIDERS: ATTEND Obstetrics & Gynecology Reproductive Endocrinology
DX: Z31.49 Encounter for other procreative investigation and testing (principal)

== ENCOUNTER → 2023-07-21 | Outpatient (CLI) | payer OTHER ==
[2023-07-21 10:43] LABS: HCG, SERUM QUANTITATIVE 785.2 MIU/ML (<4.2)
[2023-07-21 10:47] LABS: PROGESTERONE 58.81 NG/ML
== END ==
LOC: M PLALAB 07:21
PROVIDERS: ATTEND Obstetrics & Gynecology Reproductive Endocrinology
DX: Z32.00 Encounter for pregnancy test, result unknown (principal)

== ENCOUNTER → 2023-07-23 | Outpatient (CLI) | payer OTHER ==
[2023-07-23 11:12] LABS: THYROID STIMULATING HORMONE 0.706 uIU/ML (0.55-4.78)
[2023-07-23 11:14] LABS: ESTRADIOL 103.8 PG/ML
[2023-07-23 11:34] LABS: HCG, SERUM QUANTITATIVE 1717.2 MIU/ML (<4.2); PROGESTERONE 63.44 NG/ML
== END ==
LOC: M PLALAB 07:15
PROVIDERS: ATTEND Obstetrics & Gynecology Reproductive Endocrinology
DX: Z32.01 Encounter for pregnancy test, result positive (principal)

== ENCOUNTER → 2023-09-05 | Outpatient (CLI) | payer OTHER ==
[2023-09-05 18:31] LABS: HEMATOCRIT 41.1 % (36.0-47.0); HEMOGLOBIN 13.7 g/dl (12.0-15.5); MEAN CORPUSCULAR HEMOGLOBIN 30.2 pg (27.0-33.0); MEAN CORPUSCULAR HGB CONC 33.3 g/dl (32.0-36.5); MEAN CORPUSCULAR VOLUME 90.7 fl (80.0-96.0); PLATELET COUNT, AUTOMATED 293 10^3/uL (150-450); RED BLOOD COUNT 4.53 10^6/uL (4.00-5.40); WHITE BLOOD COUNT 9.1 10^3/uL (4.0-10.0)
[2023-09-05 19:21] LABS: HIV 1&2 SCREEN NEGATIVE (NEGATIVE)
[2023-09-05 19:29] LABS: HEPATITIS C VIRUS ABY INDEX 0.02 INDEX (<0.8)
[2023-09-05 21:37] LABS: GC DNA AMPLIFICATION NEGATIVE (NEGATIVE)
== END ==
LOC: M PLALAB 14:42
PROVIDERS: ATTEND Advanced Practice Midwife
DX: Z34.91 Encounter for supervision of normal pregnancy, unspecified, first trimester (principal)

== ENCOUNTER → 2023-11-03 | Outpatient (CLI) | payer OTHER | LOC: M WHC 13:52 | PROVIDERS: ATTEND Advanced Practice Midwife | DX: O44.02 Complete placenta previa NOS or without hemorrhage, second trimester (principal); Z3A.19 19 weeks gestation of pregnancy ==

== ENCOUNTER → 2023-12-23 | Outpatient (CLI) | payer OTHER ==
[2023-12-23 15:15] LABS: HEMATOCRIT 37.3 % (36.0-47.0); HEMOGLOBIN 12.4 g/dl (12.0-15.5); MEAN CORPUSCULAR HEMOGLOBIN 30.2 pg (27.0-33.0); MEAN CORPUSCULAR HGB CONC 33.2 g/dl (32.0-36.5); MEAN CORPUSCULAR VOLUME 90.8 fl (80.0-96.0); PLATELET COUNT, AUTOMATED 226 10^3/uL (150-450); RED BLOOD COUNT 4.11 10^6/uL (4.00-5.40)
[2023-12-23 15:36] LABS: GLUCOSE CHALLENGE TEST 1 HOUR 137 MG/DL (LESS THAN 140)
[2023-12-23 16:04] LABS: HIV 1&2 SCREEN NEGATIVE (NEGATIVE)
[2023-12-23 16:12] LABS: HEPATITIS C VIRUS ABY INDEX < 0.02 INDEX (<0.8)
[2023-12-23 16:32] LABS: GC DNA AMPLIFICATION NEGATIVE (NEGATIVE)
== END ==
LOC: M PLALAB 12:55
PROVIDERS: ATTEND Advanced Practice Midwife
DX: Z34.82 Encounter for supervision of other normal pregnancy, second trimester (principal)

== ENCOUNTER 2023-12-25 07:33 | Outpatient (CLI) | payer OTHER ==
[~2023-12-25] VITALS: Ht 167.6 cm; Wt 100.5 kg
[2023-12-25 07:50] VITALS: BP 123/68
[2023-12-25] MEDS ORDERED: PEPC1TAB5 PO (08:05)
[2023-12-25 09:43] LABS: HEMATOCRIT 37.4 % (36.0-47.0); HEMOGLOBIN 12.5 g/dl (12.0-15.5); MEAN CORPUSCULAR HGB CONC 33.4 g/dl (32.0-36.5); MEAN CORPUSCULAR VOLUME 89.7 fl (80.0-96.0); PLATELET COUNT, AUTOMATED 228 10^3/uL (150-450); RED BLOOD COUNT 4.17 10^6/uL (4.00-5.40); WHITE BLOOD COUNT 10.2 10^3/uL (4.0-10.0)
[2023-12-25 10:15] VITALS: BP 124/62
[2023-12-25 12:06] VITALS: BP 110/62
[2023-12-25] MEDS ORDERED: HOME MED LIST COMPLETE! XX SCH (13:10)
[2023-12-25] MEDS: RHO(D) IMMUNE GLOBULIN/MALTOSE 500MCG(2500IU)/2.2ML VIAL (WINRHO) IM SCH (13:32)
== END 2023-12-25 13:32 | disposition home or self-care (01) ==
LOC: M LDO 07:33
PROVIDERS: ATTEND Obstetrics & Gynecology
DX: O26.852 Spotting complicating pregnancy, second trimester (principal); O09.812 Supervision of pregnancy resulting from assisted reproductive technology, second trimester; O34.219 Maternal care for unspecified type scar from previous cesarean delivery; Z3A.26 26 weeks gestation of pregnancy
CPT/HCPCS: 36415; 59025; 76816; 85027; 85384; 85460; 86850; 86900; 86901; 96372; G0463; J2792

== ENCOUNTER → 2024-01-05 | Outpatient (CLI) | payer OTHER ==
[~2024-01-05] MED LIST changes: +PEPC1TAB5 PO
== END ==
LOC: M LAB 07:19
PROVIDERS: ATTEND Advanced Practice Midwife
DX: O99.810 Abnormal glucose complicating pregnancy (principal); Z3A.00 Weeks of gestation of pregnancy not specified

== ENCOUNTER 2024-01-07 10:16 | Outpatient (CLI) | payer OTHER ==
[~2024-01-07] VITALS: Ht 167.6 cm; Wt 101.9 kg
[2024-01-07 11:01] VITALS: BP 116/68
[2024-01-07 11:56] VITALS: BP 118/66
[2024-01-07 12:29] VITALS: BP 130/67
[2024-01-07 14:53] VITALS: BP 112/54
== END 2024-01-07 18:15 | disposition home or self-care (01) ==
LOC: M LDO 10:16
PROVIDERS: ATTEND Advanced Practice Midwife
DX: O26.853 Spotting complicating pregnancy, third trimester (principal); O34.219 Maternal care for unspecified type scar from previous cesarean delivery; O44.43 Low lying placenta NOS or without hemorrhage, third trimester; O09.812 Supervision of pregnancy resulting from assisted reproductive technology, second trimester; O36.0139 Maternal care for anti-D [Rh] antibodies, third trimester, other fetus; Z88.2 Allergy status to sulfonamides; Z3A.28 28 weeks gestation of pregnancy
CPT/HCPCS: 59025; G0463

== ENCOUNTER 2024-01-11 16:41 | Observation (INO) | payer OTHER ==
[~2024-01-11] VITALS: Ht 167.6 cm; Wt 102.4 kg
[2024-01-11] MEDS ORDERED: HOME MED LIST COMPLETE! XX SCH (16:55)
[2024-01-11 16:56] VITALS: BP 119/59
[2024-01-11 18:42] VITALS: BP 120/67
[2024-01-11] MEDS: BETAMETHASONE SOLUSPAN 6MG/ML 5ML VIAL IM STA (20:13)
[2024-01-11 20:41] LABS: HEMATOCRIT 36.7 % (36.0-47.0); HEMOGLOBIN 12.3 g/dl (12.0-15.5); MEAN CORPUSCULAR HEMOGLOBIN 29.6 pg (27.0-33.0); MEAN CORPUSCULAR HGB CONC 33.5 g/dl (32.0-36.5); MEAN CORPUSCULAR VOLUME 88.2 fl (80.0-96.0); PLATELET COUNT, AUTOMATED 237 10^3/uL (150-450); RED BLOOD COUNT 4.16 10^6/uL (4.00-5.40); WHITE BLOOD COUNT 13.2 10^3/uL (4.0-10.0)
[2024-01-11 20:47] VITALS: BP 135/73
== END 2024-01-11 23:40 | disposition home or self-care (01) ==
LOC: M LDO 16:41 → M LDI 18:06
PROVIDERS: ADMIT Obstetrics & Gynecology; ATTEND Obstetrics & Gynecology
DX: O26.853 Spotting complicating pregnancy, third trimester (principal); O43.213 Placenta accreta, third trimester; Z3A.29 29 weeks gestation of pregnancy
CPT/HCPCS: 59025; 76816; 76817; 76820; 85027; 86850; 86870; 86900; 86901; 96372; G0463; J0702

== ENCOUNTER 2024-01-29 12:52 | Outpatient (CLI) | payer OTHER ==
[~2024-01-29] VITALS: Ht 167.6 cm; Wt 102.1 kg
[2024-01-29 13:08] VITALS: BP 129/64
== END 2024-01-29 14:20 | disposition home or self-care (01) ==
LOC: M LDO 12:52
PROVIDERS: ATTEND Specialist
DX: O36.8399 Maternal care for abnormalities of the fetal heart rate or rhythm, unspecified trimester, other fetus (principal); O09.813 Supervision of pregnancy resulting from assisted reproductive technology, third trimester; O99.820 Streptococcus B carrier state complicating pregnancy; O34.219 Maternal care for unspecified type scar from previous cesarean delivery; Z88.1 Allergy status to other antibiotic agents; Z88.2 Allergy status to sulfonamides; Z3A.31 31 weeks gestation of pregnancy
CPT/HCPCS: 59025; G0463

== ENCOUNTER → 2024-01-29 | Outpatient (CLI) | payer OTHER | LOC: M WHC 11:26 | PROVIDERS: ATTEND Obstetrics & Gynecology | DX: O45.93 Premature separation of placenta, unspecified, third trimester (principal); Z3A.00 Weeks of gestation of pregnancy not specified ==

== ENCOUNTER → 2024-02-19 | Outpatient (REF) | payer OTHER | LOC: M SFHCWAGY 17:05 | PROVIDERS: ATTEND Obstetrics & Gynecology | DX: Z36.85 Encounter for antenatal screening for Streptococcus B (principal); Z3A.34 34 weeks gestation of pregnancy ==

== ENCOUNTER 2024-03-02 07:34 | Inpatient (IN) | payer OTHER ==
[2024-03-02] VITALS (7 sets, daily range): BP systolic 103–128; BP diastolic 55–68; TEMP 97.5; O2SAT 96–98
[~2024-03-02] VITALS: Ht 167.6 cm; Wt 107.6 kg
[2024-03-02 09:50] LABS: HEMATOCRIT 41.7 % (36.0-47.0); HEMOGLOBIN 13.5 g/dl (12.0-15.5); MEAN CORPUSCULAR HGB CONC 32.4 g/dl (32.0-36.5); MEAN CORPUSCULAR VOLUME 86.3 fl (80.0-96.0); PLATELET COUNT, AUTOMATED 216 10^3/uL (150-450); RED BLOOD COUNT 4.83 10^6/uL (4.00-5.40); WHITE BLOOD COUNT 10.6 10^3/uL (4.0-10.0)
[2024-03-02] MEDS: LACTATED RINGER'S 1000 ML IV STA (10:04)
[2024-03-02] MEDS: LR 1,000 ML IV SCH ×2 (10:04→11:35)
[2024-03-02] MEDS: ceFAZolin SOD 2 GM in IV 1 EA IV ONE (10:04)
[2024-03-02] MEDS: BICITRA 30ML SOLN UDC PO ONE (10:04)
[2024-03-02 11:02] LABS: HEPATITIS C VIRUS ABY INDEX 0.18 INDEX (<0.8)
[2024-03-02] MEDS ORDERED: ONDANSETRON 4MG 2ML VIAL As Ordered ONE (11:12)
[2024-03-02] MEDS ORDERED: MORPHINE PRES-FREE INJ 10 MG/10 ML VIAL As Ordered ONE (11:12)
[2024-03-02] MEDS ORDERED: METOCLOPRAMIDE INJ 10MG/2ML VIAL As Ordered ONE (11:12)
[2024-03-02] MEDS ORDERED: KETOROLAC 60MG 2ML VIAL As Ordered ONE (11:12)
[2024-03-02] MEDS ORDERED: PHENYLephrine 500MCG 5ML (100MCG/ML) SYRINGE As Ordered ONE (11:12)
[2024-03-02] MEDS ORDERED: ePHEDrine SULFATE 25 MG/5 ML(5MG/ML) SYRINGE As Ordered ONE (11:12)
[2024-03-02] MEDS ORDERED: OXYTOCIN 30UNITS IN 0.9% NaCl 500ML IV BAG As Ordered ONE (11:12)
[2024-03-02] MEDS ORDERED: ONDANSETRON 4MG 2ML VIAL IV PRN (11:35)
[2024-03-02] MEDS ORDERED: DOCUSATE SODIUM 100MG CAPSULE PO PRN (11:35)
[2024-03-02] MEDS: PROMETHAZINE 25MG/ML 1ML VIAL IV ONE (15:08)
[2024-03-02] MEDS: KETOROLAC 30 MG/ML 1ML VIAL IV SCH (17:19)
[2024-03-03 02:00] VITALS: BP 102/97; O2SAT 97
[2024-03-03 06:00] VITALS: BP 109/57; O2SAT 97
[2024-03-03 06:45] LABS: HEMOGLOBIN 11.9 g/dl (12.0-15.5); MEAN CORPUSCULAR HEMOGLOBIN 28.7 pg (27.0-33.0); MEAN CORPUSCULAR HGB CONC 33.1 g/dl (32.0-36.5); PLATELET COUNT, AUTOMATED 183 10^3/uL (150-450); RED BLOOD COUNT 4.14 10^6/uL (4.00-5.40); WHITE BLOOD COUNT 13.1 10^3/uL (4.0-10.0)
[2024-03-03] MEDS ORDERED: OXYC1TAB23 PO (08:01)
[2024-03-03] MEDS ORDERED: COLA100C5 PO (08:01)
[2024-03-03] MEDS ORDERED: IBUP80TA PO (08:01)
[2024-03-03] MEDS: PRENATAL VITAMINS CHEWABLE TABLET PO SCH (09:47)
[2024-03-03 10:00] VITALS: BP 124/65; O2SAT 100
[2024-03-03] MEDS: SIMETHICONE 80MG CHEW TAB PO PRN (13:13)
[2024-03-03] MEDS: IBUPROFEN 800 MG TAB PO SCH (13:13)
[2024-03-03] MEDS: RHOGAM 300MCG (1500IU) INJ IM SCH (13:54)
[2024-03-03 13:58] VITALS: BP 115/56; O2SAT 99
[2024-03-03 17:57] VITALS: BP 119/69; O2SAT 100
[2024-03-03] MEDS: PERCOCET 5MG/325MG TAB PO PRN (18:43)
[2024-03-03 22:00] VITALS: BP 129/62; O2SAT 97
[2024-03-04 02:02] VITALS: BP 118/68; O2SAT 97
[2024-03-04 06:00] VITALS: BP 125/73; O2SAT 98
[2024-03-04] MEDS ORDERED: MEASLES,MUMPS,RUBELLA VACCINE INJ (MMR-II) SC.IMMUN ONE (09:00)
[2024-03-04 09:53] VITALS: BP 128/67; O2SAT 100
[2024-03-04] MEDS: PERCOCET 5MG/325MG TAB PO PRN (11:11)
== END 2024-03-04 13:10 | disposition home or self-care (01) | DRG 788 ==
LOC: OBSVTOIN 07:34 → M LDI 07:34 → M OBS 13:23
PROVIDERS: ADMIT Specialist; ATTEND Specialist
PROC: 10D00Z1 Extraction of Products of Conception, Low, Open Approach (ICD-10-PCS; principal; 2024-03-02 09:30)
DX: O45.93 Premature separation of placenta, unspecified, third trimester (principal); O34.211 Maternal care for low transverse scar from previous cesarean delivery; Z37.0 Single live birth; Z3A.36 36 weeks gestation of pregnancy; O69.81X0 Labor and delivery complicated by cord around neck, without compression, not applicable or unspecified

== ENCOUNTER → 2025-01-05 | Outpatient (REF) | payer OTHER ==
[~2025-01-05] MED LIST changes: +COLA100C5 PO; +OXYC1TAB23 PO
== END ==
LOC: M LAB REF 20:24
PROVIDERS: ATTEND Student in an Organized Health Care Education/Training Program
DX: J02.9 Acute pharyngitis, unspecified (principal)

== ENCOUNTER → 2025-01-14 | Outpatient (REF) | payer OTHER | LOC: M PLALAB 10:38 | PROVIDERS: ATTEND Physician Assistant | DX: N76.0 Acute vaginitis (principal) ==

== ENCOUNTER → 2025-02-08 | Outpatient (REF) | payer OTHER | LOC: M PLALAB 10:03 | PROVIDERS: ATTEND Physician Assistant | DX: N89.8 Other specified noninflammatory disorders of vagina (principal) ==